=== PATIENT | male | born 1990 | race Native Hawaiian/Other Pacific Islander ===

== ENCOUNTER 2016-09-02 17:07 | Emergency (ER) | payer OTHER ==
[~2016-09-02] VITALS: Ht 167.6 cm; Wt 74.8 kg
[~2016-09-02 17:07] MED LIST: LEXAPRO20 MG OR; LISI10TA11 PO; PROZAC10 MG PO
[2016-09-02 17:34] VITALS: BP 135/99; TEMP 98.6
[2016-09-02] MEDS ORDERED: KETO10TA34 PO (18:59)
[2016-09-02] MEDS ORDERED: AMOX875T8 PO (18:59)
== END 2016-09-02 19:00 | disposition home or self-care (01) ==
LOC: ED 17:07
DX: S00.83XA Contusion of other part of head, initial encounter (principal); W50.0XXA Accidental hit or strike by another person, initial encounter; Y92.410 Unspecified street and highway as the place of occurrence of the external cause
CPT/HCPCS: 99283

== ENCOUNTER 2016-10-19 12:13 | Emergency (ER) | payer OTHER ==
[~2016-10-19] VITALS: Ht 167.6 cm; Wt 74.8 kg
[2016-10-19 12:10] VITALS: TEMP 98
[~2016-10-19 12:13] MED LIST changes: +AMOX875T8 PO; +KETO10TA34 PO
[2016-10-19 13:04] LABS: PLATELET COUNT 310 K/uL (142-355)
[2016-10-19 13:11] LABS: POTASSIUM 3.7 mmol/L (3.6-5.2); SODIUM 139 mmol/L (136-145)
[2016-10-19 14:10] LABS: PARTIAL THROMBOPLASTIN TIME 24.9 SECONDS (24.5-33.6)
[2016-10-19 14:13] VITALS: BP 114/72
== END 2016-10-19 14:14 | disposition home or self-care (01) ==
LOC: ED 12:13
PROVIDERS: Emergency Medicine
DX: R07.89 Other chest pain (principal); R09.1 Pleurisy
CPT/HCPCS: 36415; 80053; 82550; 83880; 84484; 85027; 85610; 85730; 93005; 99284

== ENCOUNTER 2018-08-09 12:21 | Emergency (ER) | payer OTHER ==
[~2018-08-09] VITALS: Ht 167.6 cm; Wt 81.6 kg
[2018-08-09 12:41] VITALS: TEMP 98.4
[2018-08-09 14:02] LABS: PLATELET COUNT 287 K/uL (142-355)
[2018-08-09 14:16] LABS: POTASSIUM 4.3 mmol/L (3.6-5.2)
[2018-08-09 14:51] LABS: PARTIAL THROMBOPLASTIN TIME 25.2 SECONDS (24.5-33.6)
[2018-08-09 17:46] VITALS: BP 126/84
== END 2018-08-09 17:45 | disposition home or self-care (01) ==
LOC: ED 12:21
PROVIDERS: Family Medicine
DX: M94.0 Chondrocostal junction syndrome [Tietze] (principal); M62.838 Other muscle spasm
CPT/HCPCS: 80053; 82150; 83690; 85027; 85379; 85610; 85730; 99283; J1885